=== PATIENT | male | born 1985 | race African-American/Black ===

== ENCOUNTER 2016-09-16 12:03 | Emergency (ER) | payer BC ==
[~2016-09-16 12:03] MED LIST: TRIUMEQ TABLET1 EACH
== END 2016-09-16 12:36 | disposition home or self-care (01) ==
LOC: SED 12:03
DX: H10.31 Unspecified acute conjunctivitis, right eye (principal); F17.210 Nicotine dependence, cigarettes, uncomplicated
CPT/HCPCS: 99283